=== PATIENT | female | born 1995 | race Caucasian/White ===

== ENCOUNTER → 2022-10-10 | Outpatient (CLI) | payer BC | END | disposition home or self-care (01) | LOC: LAB SHORT 13:28 → LAB 13:28 | PROVIDERS: Registered Nurse Community Health | DX: Z12.4 Encounter for screening for malignant neoplasm of cervix (principal) | CPT/HCPCS: G0145 ==

== ENCOUNTER 2023-07-19 19:52 | Emergency (ER) | payer BC ==
[~2023-07-19] VITALS: Ht 160 cm; Wt 77.1 kg
[~2023-07-19 19:52] MED LIST: CEPH500 PO
[2023-07-19] MEDS ORDERED: FAMO20 PO (21:26)
[2023-07-19] MEDS ORDERED: PRED20 PO (21:26)
[2023-07-19 21:30] VITALS: BP 127/83
== END 2023-07-19 21:39 | disposition home or self-care (01) ==
LOC: ER 19:52
DX: T78.1XXA Other adverse food reactions, not elsewhere classified, initial encounter (principal); Z88.1 Allergy status to other antibiotic agents; Z91.018 Allergy to other foods
CPT/HCPCS: 99284; A9270; J7512